=== PATIENT | male | born 1940 | race Caucasian/White ===

== ENCOUNTER 2024-11-29 13:19 | Emergency (ER) | payer MEDICARE, SELFPAY ==
[2024-11-29] VITALS (35 sets, daily range): BP systolic 162–221; BP diastolic 93–118; PULSE 62–84; TEMP 36.8; O2SAT 94–97; BMI 31.5
--- OUTSIDE RECORDS SUMMARY | 2024-11-29 09:15 | XMS_ITS | Encounter Summary ---
Author Organization [facility] Address [address] [facility] [place] [address] Care Team Providers Care Bottom Saw Operator Name Role Phone Santosh Montoya MD Unavailable [phone] Santosh Montoya MD Primary Care Provider [phone] Reason for Referral * Imaging (Routine) - Pending Review Specialty Diagnoses / Procedures Referred By Contac t Referred To Contact Cardiology Diagnoses Edema, unspecified type Chronic diastolic congestive heart failure (HCC) Procedures Echocardiogram 2D complete Santosh Montoya MD 112 [facility] [address] [place] [address] Phone: tel: fax: Referral ID Status Reason Start Date Expiration Date Visits Requested Visits Authorized [id number] Pending Review Perform Procedure 11/29/2024 05/28/2025 1 1 Encounter Details Date Type Department Care Team (Late st Contact Info) Description 11/29/2024 9:15 AM EDT [facility] [address] [place] [address] Santosh Montoya MD 112 [facility] [address] [place], [place] [id number] Edema, unspecified type (Primary Dx); Type 2 diabetes mellitus with other specified complication, without long-term current use of insulin (HCC); Pure hypercholesterolemi a; Benign essential hypertension; Atherosclerosis of [place] coronary artery of [place] heart without angina pectoris; Chronic diastolic congestive heart failure (HCC); Acute non-recurrent sinusitis, unspecified location Social History Tobacco Use Types Packs/Day Years Used Date Smoking Tobacco: Former Cigarettes 1 1974 Smokeless Tobacco: Never Tobacco Cessation:Counseling Given: Yes Alcohol Use Standard Drinks/Week Comments Defer 0 (1 standard drink = 0.6 oz pur e alcohol) PHQ-2 Answer Date Recorded Patient Health Questionnaire-2 Score 2 11/29/2024 Sex and Gender Information Value Date Recorded Sex Assigned at Not on file Legal Sex Male 6:42 PM EDT Gender Identity Not on file Sexual Orientation Not on file documented as of this encounter Last Filed Vital Signs Vital Sign Reading Time Taken Comments Blood Pressure 210/102 11/29/2024 9:25 AM EDT Pulse 87 11/29/2024 9:25 AM EDT Temperature - - Respiratory Rate 16 11/29/2024 9:25 AM EDT Oxygen Saturation 98% 11/29/2024 9:25 AM EDT Inhaled Oxygen Concentration - - Weight 93.9 kg (207 lb) 11/29/2024 9:25 AM EDT Height 172.7 cm (5' 8 ) 11/29/2024 9:25 AM EDT Body Mass Index 31.47 11/29/2024 9:25 AM EDT documented in this encounter Functional Status * Over the past 2 weeks, how often have you been bothered by any of the following problems? Question Answer Date of Assessment Author Little interest or pleasure in doing things Several days 11/29/2024 9:10 AM JOSHUAT RALPH GARNER Feeling down, depressed, or hopeless Several days 07/2024 9:10 AM EDT RALPH GARNER Patient Health Questionnaire-2 Score 2 07/2024 9:10 AM EDT RALPH GARNER * If you checked off any problems on this questionnaire so far, Question Answer Date of Assessment Author How difficult have these problems made it for you to do your work, take care of things at home, or get along with other people? Somewhat difficult 11/29/2024 9:10 AM JOSHUAT RALPH GARNER documented as of this encounter Progress Notes * Santosh Montoya MD - 11/29/2024 9:15 AM EDT Images from the original note were not included. Subjective Patient ID: Lisbet Elaine is a 84 y.o. male who presents for a follow up. Lisbet presents today for a a DM follow up. Last A1c was 7.2 in April. He hasn't been check his BS at home. He is also having B/I ankle swelling. Over the past 2 weeks, how often have you been bothered by any of the following problems? Little interest or pleasure in doing things: Several days Feeling down, depressed, or hopeless: Several days Patient Health Questionnaire-2 Score: 2 If you checked off any problems on this questionnaire so far, How difficult have these problems made it for you to do your work, take care of things at home, or get along with other people?: Somewhat difficult Current Outpatient Medications on File Prior to Visit Medication Sig Dispense Refill allopurinol (Zyloprim) 300 MG tablet TAKE 1 TABLET BY MOUTH ONCE DAILY 100 tablet 3 Blood Glucose Monitoring Suppl (ONE TOUCH ULTRA 2) w/Device kit 1 Device in the morning. 1 kit 0 cholecalciferol (Vitamin D-3) 25 MCG (1000 UT) capsule Take 1 capsule by mouth 1 (one) time each day at the same time glucose blood (Eleme MedicalTouch Ultra) test strip 1 each by Other route Daily 100 each 3 Lancets (Eleme MedicalTouch Delica Plus [id number]) misc Inject 1 Device under the skin Daily 100 each 3 [DISCONTINUED] aspirin 81 MG EC tablet Take 81 mg by mouth Daily [DISCONTINUED] atorvastatin (Lipitor) 20 MG tablet TAKE 1 TABLET BY MOUTH ONCE DAILY 100 tablet 3 [DISCONTINUED] carvedilol (Coreg) 25 MG tablet Take 1 tablet (25 mg) by mouth in the morning and 1 tablet (25 mg) in the evening. Take with meals. 180 tablet 3 [DISCONTINUED] clopidogrel (Plavix) 75 MG tablet TAKE 1 TABLET BY MOUTH ONCE DAILY 100 tablet 3 [DISCONTINUED] lisinopril 40 MG tablet Take 1 tablet (40 mg) by mouth Daily 90 tablet 3 No current facility-administered medications on file prior to visit. I have reviewed and reconciled the history and medication list with the patient today. Allergies Allergen Reactions Simvastatin Other Reaction(s): Myalgias Tizanidine Dizziness Social History Tobacco Use Smoking status: Former Current packs/day: 0.00 Types: Cigarettes Start date: 1959 Quit date: 1974 Years since quittin.7 Smokeless tobacco: Never Vaping Use Vaping status: Never Used Substance Use Topics Alcohol use: Defer Drug use: Defer No family history on file. Past Medical History: Diagnosis Date CAD (coronary artery disease) Diabetes mellitus (HCC) Hyperlipemia Hypertension Past Surgical History: Procedure Laterality Date ANGIOPLASTY 2007 CORONARY ANGIOPLASTY WITH STENT PLACEMENT 2006 ELBOW SURGERY Left 2019 bursectomy HERNIA REPAIR Visit Vitals BP (!) 210/102 Pulse 87 Resp 16 Ht 5' 8 Wt 207 lb SpO2 98% BMI 31.47 kg/m?? Smoking Status Former BSA 2.12 m?? Review of Systems Objective Physical Exam Constitutional: General: He is not in acute distress. Appearance: He is normal weight. He is not ill-appearing. HENT: Head: Normocephalic and atraumatic. Nose: Congestion present. Mouth/Throat: Pharynx: Oropharyngeal exudate and posterior oropharyngeal erythema present. Cardiovascular: Rate and Rhythm: Normal rate and regular rhythm. Pulses: Dorsalis pedis pulses are 0 on the right side and 0 on the left side. Posterior tibial pulses are 0 on the right side and 0 on the left side. Heart sounds: Murmur heard. Systolic murmur is present with a grade of 2/6. Pulmonary: Effort: Pulmonary effort is normal. No respiratory distress. Breath sounds: Normal breath sounds. No wheezing. Abdominal: General: Bowel sounds are normal. There is no distension. Palpations: Abdomen is soft. Tenderness: There is no abdominal tenderness. There is no guarding. Musculoskeletal: General: No swelling. Right lower leg: Edema present. Left lower leg: Edema present. Neurological: General: No focal deficit present. Mental Status: He is alert and oriented to person, place, and time. Psychiatric: Mood and Affect: Mood normal. Thought Content: Thought content normal. Judgment: Judgment normal. Office Visit on 11/29/2024 Component Date Value Ref Range Status Hemoglobin A1C 11/29/2024 7.6 Final Assessment/Plan Diagnoses and all orders for this visit: Edema, unspecified type - furosemide (Lasix) 20 MG tablet; Take 1 tablet (20 mg) by mouth Daily for 7 days - Echocardiogram 2D complete; Future Type 2 diabetes mellitus with other specified complication, without long-term current use of insulin (HCC) - POCT glycosylated hemoglobin (Hb A1C) docked device - aspirin 81 MG EC tablet; Take 1 tablet (81 mg) by mouth Daily Pure hypercholesterolemia - aspirin 81 MG EC tablet; Take 1 tablet (81 mg) by mouth Daily - atorvastatin (Lipitor) 20 MG tablet; Take 1 tablet (20 mg) by mouth Daily - clopidogrel (Plavix) 75 MG tablet; Take 1 tablet (75 mg) by mouth Daily Benign essential hypertension - aspirin 81 MG EC tablet; Take 1 tablet (81 mg) by mouth Daily - carvedilol (Coreg) 25 MG tablet; Take 1 tablet (25 mg) by mouth in the morning and 1 tablet (25 mg) in the evening. Take with meals. - lisinopril 40 MG tablet; Take 1 tablet (40 mg) by mouth Daily Atherosclerosis of [place] coronary artery of [place] heart without angina pectoris Chronic diastolic congestive heart failure (HCC) - B-type natriuretic peptide; Future - Comprehensive metabolic panel; Future - furosemide (Lasix) 20 MG tablet; Take 1 tablet (20 mg) by mouth Daily for 7 days - Echocardiogram 2D complete; Future - BP is up, he didn't take his meds. He has no symptoms of CP, Dyspnea, Headache, etc- states he feels fine. Will have him take his meds and RTC 4 hours for BP check. Acute non-recurrent sinusitis, unspecified location - azithromycin (Zithromax) 250 MG tablet; Take 2 tablets (500 mg) by mouth Daily for 1 day, THEN 1 tablet (250 mg) Daily for 4 days. Follow up in about 1 week (around 12/06/2024) for F/U med changes, Test/Lab Review. documented in this encounter Plan of Treatment Scheduled Orders Name Type Priority Associated Diagnoses Orde r Schedule B-type natriuretic peptide Lab Routine Chronic diastolic congestive heart failure (HCC) Expected: 11/29/2024 (Approximate), Expires: 11/29/2025 Comprehensive metabolic panel Lab Routine Chronic diastolic congestive heart failure (HCC) Expected: 11/29/2024 (Approximate), Expires: 11/29/2025 Echocardiogram 2D complete Echocardiography Routine Edema, unspecified type Chronic diastolic congestive heart failure (HCC) Expected: 11/29/2024 (Approximate), Expires: 11/29/2026 documented as of this encounter Procedures Procedure Name Priority Date/Time Associated Diagnosis Comments POCT GLYCOSYLATED HEMOGLOBIN (HGB A1C) Routine 11/29/2024 9:28 AM EDT Type 2 diabetes mellitus with other specified complication, without long-term current use of insulin (HCC) documented in this encounter Results * (ABNORMAL) POCT glycosylated hemoglobin (Hb A1C) docked device (11/29/2024 9:28 AM EDT) Hemoglobin A1C 7.6 Blood Venous blood specimen / Unknown 11/29/2024 9:28 AM EDT Santosh Montoya MD POINT OF CARE TEST ENTER/EDIT ORDERABLES Final Result documented in this encounter Visit Diagnoses Diagnosis Edema, unspecified type- Primary Type 2 diabetes mellitus with other specified complication, without long-term current use of insulin (HCC) Pure hypercholesterolemia Benign essential hypertension Essential hypertension, benign Atherosclerosis of [place] coronary artery of [place] heart without angina pectoris Chronic diastolic congestive heart failure (HCC) Acute non-recurrent sinusitis, unspecified location documented in this encounter Care Teams Bottom Saw Operator Relationship Specialty Start Date End Date Santosh Montoya MD 112 [facility] [address] [place] [address] PCP - ACO Reach 07/18/22 Santosh Montoya MD [address] [address] PCP - General Internal Medicine 07/02/22 documented as of this encounter
--- OUTSIDE RECORDS SUMMARY | 2024-11-29 13:29 | XMS_ITS | Clinical Summary ---
Author Organization [facility] Address [address] [facility] [place] [address] Care Team Providers Care Linderman Operator Name Role Phone Santosh Montoya MD Unavailable [phone] Santosh Montoya MD Primary Care Provider [phone] Allergies Active Allergy Reactions Criticality Noted Date Comments Simvastatin 10/10/2022 Other Reaction(s): Myalgias Tizanidine Dizziness 06/07/2024 Medications cholecalciferol (Vitamin D-3) 25 MCG (1000 UT) capsule Take 1 capsule by mouth 1 (one) time each day at the same time Active Blood Glucose Monitoring Suppl (ONE TOUCH ULTRA 2) w/Device kitIndications:Type 2 diabetes mellitus without complication, without long-term current use of insulin ([facility]) 1 Device in the morning. 1 kit 11/16/19 23 Active glucose blood (OneTouch Ultra) test stripIndications:Type 2 diabetes mellitus without complication, without long-term current use of insulin ([facility]) 1 each by Other route Daily 100 each 3 05/25/19 25 Active Lancets (OneTouch Delica Plus [id number]) miscIndications:Type 2 diabetes mellitus without complication, without long-term current use of insulin ([facility]) Inject 1 Device under the skin Daily 100 each 3 05/25/19 25 Active allopurinol (Zyloprim) 300 MG tabletIndications:Benig n essential hypertension TAKE 1 TABLET BY MOUTH ONCE DAILY 100 tablet 3 10/30/19 25 Active aspirin 81 MG EC tabletIndications:Type 2 diabetes mellitus with other specified complication, without long-term current use of insulin ([facility]),Pure hypercholesterolemia,Be nign essential hypertension Take 1 tablet (81 mg) by mouth Daily 100 tablet 3 11/30/19 25 Active atorvastatin (Lipitor) 20 MG tabletIndications:Pure hypercholesterolemia Take 1 tablet (20 mg) by mouth Daily 100 tablet 3 11/30/19 25 Active carvedilol (Coreg) 25 MG tabletIndications:Benig n essential hypertension Take 1 tablet (25 mg) by mouth in the morning and 1 tablet (25 mg) in the evening. Take with meals. 200 tablet 3 11/30/19 25 026 Active clopidogrel (Plavix) 75 MG tabletIndications:Pure hypercholesterolemia Take 1 tablet (75 mg) by mouth Daily 100 tablet 3 11/30/19 25 Active lisinopril 40 MG tabletIndications:Benig n essential hypertension Take 1 tablet (40 mg) by mouth Daily 100 tablet 3 11/30/19 25 Active azithromycin (Zithromax) 250 MG tabletIndications:Acute non-recurrent sinusitis, unspecified location Take 2 tablets (500 mg) by mouth Daily for 1 day, THEN 1 tablet (250 mg) Daily for 4 days. 6 tablet 11/30/19 25 025 Active furosemide (Lasix) 20 MG tabletIndications:Edema , unspecified type,Chronic diastolic congestive heart failure (HCC) Take 1 tablet (20 mg) by mouth Daily for 7 days 7 tablet 11/30/19 25 025 Active aspirin 81 MG EC tablet Take 81 mg by mouth Daily 025 Discontin ued(Reord er) clopidogrel (Plavix) 75 MG tabletIndications:Pure hypercholesterolemia TAKE 1 TABLET BY MOUTH ONCE DAILY 100 tablet 3 01/15/20 24 025 Discontin ued(Reord er) atorvastatin (Lipitor) 20 MG tabletIndications:Pure hypercholesterolemia TAKE 1 TABLET BY MOUTH ONCE DAILY 100 tablet 3 01/15/20 24 025 Discontin ued(Reord er) lisinopril 40 MG tabletIndications:Benig n essential hypertension Take 1 tablet (40 mg) by mouth Daily 90 tablet 3 03/09/19 25 025 Discontin ued(Reord er) carvedilol (Coreg) 25 MG tabletIndications:Benig n essential hypertension Take 1 tablet (25 mg) by mouth in the morning and 1 tablet (25 mg) in the evening. Take with meals. 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 06/16/2024 Atherosclerosis of [place] co ronary artery of [place] heart without angina pectoris 10/10/2022 Benign essential hypertension 10/10/2022 Calculus of ureter 10/10/2022 Elevated antinuclear antibody (DILSHAD) level 2022 Essential tremor 10/10/2022 Mild diastolic dysfunction 10/10/2022 Post-traumatic osteoarthritis of right knee 09/24 Primary osteoarthritis involving multiple joints 10/10/2022 Pure hypercholesterolemia 10/10/2022 Seborrheic dermatitis 10/10/2022 Type 2 diabetes mellitus with other specified co mplication 10/10/2022 Acute idiopathic gout of left elbow 10/10/2022 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 10/10/2022 Resolved Problems Problem Noted Date Diagnosed Date Resolved Date Poorly controlled diabetes mellitus 10/10/2022 05/24/2024 Encounters Date Type Department Care Team Description 11/29/2024 9:15 AM EDT Office Visit [facility] [address] [place] [id number] Santosh Montoya MD Edema, unspecified type (Primary Dx); Type 2 diabetes mellitus with other specified complication, without long-term current use of insulin (HCC); Pure hypercholesterolemia ; Benign essential hypertension; Atherosclerosis of [place] coronary artery of [place] heart without angina pectoris; Chronic diastolic congestive heart failure (HCC); Acute non-recurrent sinusitis, unspecified location 11/29/2024 [facility] 110 [place] [id number] Santosh Montoya MD 11/29/2024 Travel 11/12/2024 [facility] 110 [place] [address] Santosh Montoya MD 10/28/2024 [facility] [address] [facility] 110 [place] [id number] Santosh Montoya MD Benign essential hypertension 09/02/2024 Telephone [facility] [place] [facility] [address] [address] [facility] [address] [place] [address] Santosh Montoya MD handicap placard from Last 3 Months Immunizations Immunization Administration Dates Next Due Influenza, High Dose Seasona l, Preservative Free 11/15/2023,01/08/2022 Influenza, High-dose Seasona l, Quadrivalent, Preservative Free 12/26/2020,12/29/2018,11/26/2017 Influenza, Seasonal, Quadriv alent, Adjuvanted 12/30/2022 Influenza, injectable, quadr ivalent, preservative free 11/13/2019,12/11/2015 Influenza, seasonal, injectable 11/01/2013 Influenza, seasonal, intrade rmal, preservative free 11/03/2014,12/14/2012 Pneumococcal Conjugate PCV 13 02/19/2018 Pneumococcal Polysaccharide PPSV23 11/09/2013 Zoster, Recombinant 04/11/2019 Family History Relation Name Status Comments Father Mother Social History Tobacco Use Types Packs/Day Years Used Date Smoking Tobacco: Former Cigarettes 1974 Smokeless Tobacco: Never Tobacco Cessation:Counseling Given: Yes Alcohol Use Standard Drinks/Week Comments Defer 0 (1 standard drink = 0.6 oz pur e alcohol) PHQ-2 Answer Date Recorded Patient Health Questionnaire-2 Score 2 11/29/2024 Sex and Gender Information Value Date Recorded Sex Assigned at Not on file Legal Sex Male 6:42 PM EDT Gender Identity Not on file Sexual Orientation Not on file Last Filed Vital Signs Vital Sign Reading [...] Mass Index 31.47 11/29/2024 9:25 AM EDT Plan of Treatment Health Maintenance Due Date Last Done Comments Diabetes: Retinopathy Screening 09/10/1950 Diabetes: Urine Protein Screening 11/01/2021 11/01/2020, 10/28/2019, 07/07/2018 Diabetes: Hemoglobin A1C 03/01/2025 025, 05/24/2024, 04/23/2023, Additional history exists Medicare Annual Wellness (AWV) 05/24/2025 0 05/24/2024, 05/21/2023, 04/24/2022, Additional history exists Pneumococcal Vaccine: 65+ Years Completed 8, 11/09/2013 Influenza Vaccine Completed 11/03/2024, , 12/30/2022, Additional history exists Procedures Procedure Name Priority Date/Time Associated Diagnosis Comments POCT GLYCOSYLATED HEMOGLOBIN (HGB A1C) Routine 11/29/2024 9:28 AM EDT Type 2 diabetes mellitus with other specified complication, without long-term current use of insulin (HCC) MICROALBUMIN / CREATININE URINE RATIO Routine 11/01/2020 from Last 3 Months or Most Recently Relevant to Health Maintenance Results * (ABNORMAL) POCT glycosylated hemoglobin (Hb A1C) docked device (11/29/2024 9:28 AM EDT) Hemoglobin A1C 7.6 Blood Venous blood specimen / Unknown 11/29/2024 9:28 AM EDT Santosh Montoya MD POINT OF CARE TEST ENTER/EDIT ORDERABLES Final Result * (ABNORMAL) Microalbumin / creatinine urine ratio (11/01/2020) UCREA 214 39 - 259 [facility] MALB <1.2(L) [facility] Comment: Unable to calculate mALB/Crea ratio, mALB is <1.2 mg/dL mALB reference range not established. 11/01/2020 us Santosh Montoya MD LAB URINE ORDERABLES Final Res ult [facility] from Last 3 Months or Most Recently Relevant to Health Maintenance Insurance MEDICARE [facility] Care Teams Linderman Operator Relationship Specialty Start Date End Date Santosh Montoya MD [address] [facility] 110 [place] [address] PCP - ACO Reach 07/18/22 Santosh Montoya MD [address] [facility] 110 [place] [address] PCP - General Internal Medicine 07/02/22
--- OUTSIDE RECORDS SUMMARY | 2024-11-29 13:29 | XMS_ITS | Encounter Summary ---
Author Organization [facility] Address [address] [facility] [place] [address] Care Team Providers Care Collaborating Supervising Physician Name Role Phone Santosh Montoya MD Unavailable [phone] Santosh Montoya MD Primary Care Provider [phone] Encounter Details Date Type Department Care Team (Late st Contact Info) Description 10/10/2022 Orders Only [facility] [address] [facility] [address] [place] [address] Prema Chan, ASSISTANT PROJECT ENGINEER [address] [facility] [facility] [place] [address] Social History Tobacco Use Types Packs/Day Years Used Date Smoking Tobacco: Never Assessed Sex and Gender Information Value Date Recorded Sex Assigned at Not on file Legal Sex Male 6:42 PM EDT Gender Identity Not on file Sexual Orientation Not on file documented as of this encounter Plan of Treatment Not on file documented as of this encounter Visit Diagnoses Not on filedocumented in this encounter Care Teams Collaborating Supervising Physician Relationship Specialty Start Date End Date Santosh Montoya MD [address] [facility] [address] [place], [place] [id number] PCP - ACO Reach 07/18/22 Santosh Montoya MD [address] [facility] [address] [place], [place] [id number] PCP - General Internal Medicine 07/02/22 documented as of this encounter
--- OUTSIDE RECORDS SUMMARY | 2024-11-29 13:29 | XMS_ITS | Encounter Summary ---
Author Organization [facility] Address [address] [facility] [place] [address] Care Team Providers Care Experimental Physicist Name Role Phone Santosh Montoya MD Unavailable [phone] Santosh Montoya MD Primary Care Provider [phone] Encounter Details Date Type Department Care Team (Late st Contact Info) Description 05/22/2023 Abstract [facility] [place] [facility] [address] [facility] 110 [place] [phone] Santosh Montoya MD [address] [facility] 110 [place] [address] Social History Tobacco Use Types Packs/Day Years Used Date Smoking Tobacco: Former Cigarettes 1974 Smokeless Tobacco: Never Sex and Gender Information Value Date Recorded Sex Assigned at Not on file Legal Sex Male 6:42 PM EDT Gender Identity Not on file Sexual Orientation Not on file documented as of this encounter Plan of Treatment Not on file documented as of this encounter Visit Diagnoses Not on filedocumented in this encounter Care Teams Experimental Physicist Relationship Specialty Start Date End Date Santosh Montoya MD [address] [facility] [address] [place] [address] PCP - ACO Reach 07/18/22 Santosh Montoya MD [address] [facility] [address] [place] [address] PCP - General Internal Medicine 07/02/22 documented as of this encounter
--- OUTSIDE RECORDS SUMMARY | 2024-11-29 13:29 | XMS_ITS | Encounter Summary ---
Author Organization [facility] Address [address] [facility] [place] [address] Care Team Providers Care Building Cleaner Name Role Phone Santosh Montoya MD Unavailable [phone] Santosh Montoya MD Primary Care Provider [phone] Reason for Visit * Reason Comments Med Refill Encounter Details Date Type Department Care Team (Late st Contact Info) Description 04/28/2024 Refill [facility] [place] [facility] [address] [facility] [address] [place] [id number] Santosh Montoya MD [address] [place], [place] [id number] Benign essential hypertension Social History Tobacco Use Types Packs/Day Years Used Date Smoking Tobacco: Former Cigarettes 1974 Smokeless Tobacco: Never Sex and Gender Information Value Date Recorded Sex Assigned at Not on file Legal Sex Male 6:42 PM EDT Gender Identity Not on file Sexual Orientation Not on file documented as of this encounter Miscellaneous Notes * Telephone Encounter - VALERI Scott - 04/29/2024 11:23 AM EST Patient has not been seen in almost a year, and cancelled her last appt. A one month supply was sent in for pt. Please help her get set up with Dr. Montoya for an appointment within the next month. documented in this encounter Plan of Treatment Not on file documented as of this encounter Visit Diagnoses Diagnosis Benign essential hypertension Essential hypertension, benign documented in this encounter Care Teams Building Cleaner Relationship Specialty Start Date End Date Santosh Montoya MD [address] [facility] [address] [place] [address] PCP - ACO Reach 07/18/22 Santosh Montoya MD [address] [facility] 110 [place] [address] PCP - General Internal Medicine 07/02/22 documented as of this encounter
--- OUTSIDE RECORDS SUMMARY | 2024-11-29 13:29 | XMS_ITS | Encounter Summary ---
Author Organization [facility] Address [address] [facility] [place] [address] Care Team Providers Care Patient Coordinator Name Role Phone Santosh Montoya MD Unavailable [phone] Santosh Montoya MD Primary Care Provider [phone] Encounter Details Date Type Department Care Team (Latest Contact Info) Description 11/29/2024 Travel Social History Tobacco Use Types Packs/Day Years Used Date Smoking Tobacco: Former Cigarettes 1974 Smokeless Tobacco: Never Alcohol Use Standard Drinks/Week Comments Defer 0 (1 standard drink = 0.6 oz pur e alcohol) PHQ-2 Answer Date Recorded Patient Health Questionnaire-2 Score 2 11/29/2024 Sex and Gender Information Value Date Recorded Sex Assigned at Not on file Legal Sex Male 6:42 PM EDT Gender Identity Not on file Sexual Orientation Not on file documented as of this encounter Functional Status * Over the past 2 weeks, how often have you been bothered by any of the following problems? Question Answer Date of Assessment Author Little interest or pleasure in doing things Several days 11/29/2024 9:10 AM RALPH MORRISON Feeling down, depressed, or hopeless Several days 07/2024 9:10 AM RALPH MORRISON Patient Health Questionnaire-2 Score 2 07/2024 9:10 AM RALPH MORRISON * If you checked off any problems on this questionnaire so far, Question Answer Date of Assessment Author How difficult have these problems made it for you to do your work, take care of things at home, or get along with other people? Somewhat difficult 11/29/2024 9:10 AM RALPH MORRISON documented as of this encounter Plan of Treatment Not on file documented as of this encounter Visit Diagnoses Not on filedocumented in this encounter Care Teams Patient Coordinator Relationship Specialty Start Date End Date Santosh Montoya MD [address] [facility] 110 [place] [address] PCP - ACO Reach 07/18/22 Santosh Montoya MD [address] [facility] 110 [place] [address] PCP - General Internal Medicine 07/02/22 documented as of this encounter
--- OUTSIDE RECORDS SUMMARY | 2024-11-29 13:29 | XMS_ITS | Encounter Summary ---
Author Organization [facility] Address [address] [facility] [place] [address] Care Team Providers Care Toolroom Helper Name Role Phone Santosh Montoya MD Unavailable [phone] Santosh Montoya MD Primary Care Provider [phone] Encounter Details Date Type Department Care Team (Late st Contact Info) Description 05/24/20[address] [facility] [place] [facility] [address] [facility] [address] [place] [phone] Santosh Montoya MD [address] [place], [place] [phone] Social History Tobacco Use Types Packs/Day Years Used Date Smoking Tobacco: Former Cigarettes 1974 Smokeless Tobacco: Never PHQ-2 Answer Date Recorded Patient Health Questionnaire-2 Score 0 05/27/2024 Sex and Gender Information Value Date Recorded [...] Little interest or pleasure in doing things Not at all 05/27/2024 9:22 AM JOSHUAT Mirna Mcclendon LP N Feeling down, depressed, or hopeless Not at all 05/27/2024 9:22 AM EDT Mirna Mcclendon LP N Patient Health Questionnaire -2 Score 0 05/27/2024 9:22 AM JOSHUAT Mirna Mcclendon LP N documented as of this encounter Plan of Treatment Not on file documented as of this encounter Visit Diagnoses Not on filedocumented in this encounter Care Teams Toolroom Helper Relationship Specialty Start Date End Date Santosh Montoya MD [address] [facility] 110 [place] [address] PCP - ACO Reach 07/18/22 Santosh Montoya MD [address] [facility] [address] [place] [address] PCP - General Internal Medicine 07/02/22 documented as of this encounter
--- OUTSIDE RECORDS SUMMARY | 2024-11-29 13:29 | XMS_ITS | Encounter Summary ---
Author Organization [facility] Address [address] [facility] [place] [address] Care Team Providers Care Assault Amphibious Vehicle Officer Name Role Phone Santosh Montoya MD Unavailable [phone] Santosh Montoya MD Primary Care Provider [phone] Encounter Details Date Type Department Care Team (Late st Contact Info) Description 11/29/2024 Bamboo flowsheet [facility] [place] [facility] [address] [facility] 110 [place] [address] Santosh Montoya MD [address] [facility] 110 [place] [address] Social History Tobacco Use Types Packs/Day Years [...] on filedocumented in this encounter Care Teams Assault Amphibious Vehicle Officer Relationship Specialty Start Date End Date Santosh Montoya MD [address] [facility] 110 [place] [address] PCP - ACO Reach 07/18/22 Santosh Montoya MD [address] [facility] 110 [place] [address] PCP - General Internal Medicine 07/02/22 documented as of this encounter
--- OUTSIDE RECORDS SUMMARY | 2024-11-29 13:29 | XMS_ITS | Encounter Summary ---
Author Organization [facility] Address [address] [facility] [place] [address] Care Team Providers Care Logging Supervisor Name Role Phone Santosh Montoya MD Unavailable [phone] Santosh Montoya MD Primary Care Provider [phone] Encounter Details Date Type Department Care Team (Late st Contact Info) Description 10/19/2022 Abstract [facility] [place] [facility] [address] [facility] 110 [place] [phone] Santosh Montoya MD [address] [facility] 110 [place] [address] Social History Tobacco Use Types Packs/Day Years [...] on filedocumented in this encounter Care Teams Logging Supervisor Relationship Specialty Start Date End Date Santosh Montoya MD [address] [place] [address] PCP - ACO Reach 07/18/22 Santosh Montoya MD [address] [place] [address] PCP - General Internal Medicine 07/02/22 documented as of this encounter
--- OUTSIDE RECORDS SUMMARY | 2024-11-29 13:29 | XMS_ITS | Encounter Summary ---
Author Organization [facility] Address [address] [facility] [place] [address] Care Team Providers Care Center Human Resources Manager Name Role Phone Santosh Montoya MD Unavailable [phone] Santosh Montoya MD Primary Care Provider [phone] Encounter Details Date Type Department Care Team (Late st Contact Info) Description 06/07/2024 Abstract [facility] [place] [facility] [address] [place] [address] Santosh Montoya MD [address] [place], [place] [phone] Social History Tobacco Use Types Packs/Day Years Used Date Smoking Tobacco: Former Cigarettes 1974 Smokeless Tobacco: Never PHQ-2 Answer Date Recorded Patient Health Questionnaire-2 Score 0 06/07/2024 Sex and Gender Information Value Date Recorded [...] pleasure in doing things Not at all 06/07/2024 8:36 AM JOSHUAT Mirna Mcclendon LP N Feeling down, depressed, or hopeless Not at all 06/07/2024 8:36 AM EDT Mirna Mcclendon LP N Patient Health Questionnaire -2 Score 0 06/07/2024 8:36 AM EDT Mirna Mcclendon LP N documented as of this encounter Plan of Treatment Not on file documented as of this encounter Visit Diagnoses Not on filedocumented in this encounter Care Teams Center Human Resources Manager Relationship Specialty Start Date End Date Santosh Montoya MD [address] [facility] 110 [place] [address] PCP - ACO Reach 07/18/22 Santosh Montoya MD [address] [facility] 110 [place] [address] PCP - General Internal Medicine 07/02/22 documented as of this encounter
--- OUTSIDE RECORDS SUMMARY | 2024-11-29 13:29 | XMS_ITS | Clinical Summary ---
Author Organization [facility] Address [facility] [place] [address] Care Team Providers Care Motor And Chassis Inspector Name Role Phone Jan ROMAN MD, Santosh Marquis Primary Care Provider [phone] Allergies Active Allergy Reactions Criticality Noted Date Comments Simvastatin Unknown 10/10/2022 Other Reaction(s): Myalgias Medications aspirin, enteric coated (ASPIRIN, ENTERIC COATED) 81 mg EC tablet Take 81 mg by mouth. Active atorvastatin (LIPITOR) 20 mg tablet Take 20 mg by mouth. Active clopidogrel (PLAVIX) 75 mg tablet Take 75 mg by mouth. Active hydroCHLOROthia zide 25 mg tablet Take 25 mg by mouth. Active lisinopril (ZESTRIL) 40 mg tablet Take 40 mg by mouth. Active metoprolol tartrate, short acting, (LOPRESSOR) 100 mg tablet Take 100 mg by mouth. Active allopurinol (ZYLOPRIM) 300 mg tablet Take 300 mg by mouth. Active metFORMIN ER (GLUCOPHAGE XR) 500 mg 24 hr tablet Take 1,000 mg by mouth. Active prednisoLONE acetate (PRED FORTE) 1 % ophthalmic suspension USE DIRECTED BY PHYSICIAN, IN OPERATIVE EYE, BEGINNING ONE DAY AFTER SURGERY 5 mL 3 Active Additional Information Patient not taking.Reason: Course of Therapy Completed, Reported on 04/17/2023 keTORolac (ACULAR) 0.5 % ophthalmic solution USE DIRECTED BY PHYSICIAN, IN OPERATIVE EYE, BEGINNING ONE DAY AFTER SURGERY 5 mL 3 Active Additional Information Patient not taking.Reason: Course of Therapy Completed, Reported on 04/17/2023 prednisoLONE acetate (PRED FORTE) 1 % ophthalmic suspension USE DIRECTED BY PHYSICIAN, IN OPERATIVE EYE, BEGINNING ONE DAY AFTER SURGERY 5 mL 3 Active Additional Information Patient not taking.Reason: Course of Therapy Completed, Reported on 04/17/2023 keTORolac (ACULAR) 0.5 % ophthalmic solution USE DIRECTED BY PHYSICIAN, IN OPERATIVE EYE, BEGINNING ONE DAY AFTER SURGERY 5 mL 3 Active Additional Information Patient not taking.Reason: Course of Therapy Completed, Reported on 04/17/2023 Active Problems Problem Noted Date Diagnosed Date Poorly controlled diabetes mellitus 10/10/2022 10/17/2022 Type 2 diabetes mellitus without complications 0 10/10/2022 10/17/2022 Assessment & Plan (10/17/2022 9:57 AM EDT): Assessment: stable on medication Pure hypercholesterolemia 07/15/20182022 Assessment & Plan (10/17/2022 9:56 AM EDT): Assessment: stable on medication Benign essential hypertension 02/10/2015 Assessment & Plan (10/17/2022 9:56 AM EDT): Assessment: Stable on medication BP today 172/73 To take medication morning of surgery Essential tremor 02/10/2015 10/17/2022 Assessment & Plan (10/17/2022 9:55 AM EDT): Assessment: stable no tremors noted 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neighborhoodatlas.[facility]/. Last address used for calculation [address] 08/29/2022 Sex and Gender Information Value Date Recorded Sex Assigned at Not on file Legal Sex Male 2:28 PM EDT Gender Identity Male 06/14/2022 8:36 AM EDT Sexual Orientation Not on file Last Filed Vital Signs Vital Sign Reading Time Taken Comments Blood Pressure 165/84 11/13/2022 10:08 AM EDT Pulse 60 11/13/2022 10:08 AM EDT Temperature 36.7 C (98 F) 11/13/2022 9:58 AM EDT Respiratory Rate 16 11/13/2022 10:08 AM EDT Oxygen Saturation 96% 11/13/2022 10:08 AM EDT Inhaled Oxygen Concentration - - Weight 87.5 kg (193 lb) 10/17/2022 9:18 AM EDT Height 170.2 cm (5' 7 ) 10/17/2022 9:18 AM EDT Body Mass Index 30.23 10/17/2022 9:18 AM EDT Plan of Treatment Health Maintenance Due Date Last Done Comments Anxiety Screening 09[birth year]10/1958 Depression Screening 09/10/1958 DTaP,Tdap,Td Vaccine (1 - Tdap) 09/10/1958 RSV Vaccine (1 - 1-dose 75+ series) 09/10/2014 Shingrix Vaccine (2 of 2) 06/06/2019 04/11/2019 Advance Directive Discussion 02/25/2024 Covid-19 Vaccine (7 - 2024-2 6 season) 2024 01/28/2023, 01/08/2022, 05/28/2021, Additional history exists Influenza Vaccine (#1) 2024 , 01/08/2022, 12/26/2020, Additional history exists Diabetes Screening 10/21/2025 10/21/2022 Pneumococcal Vaccine: 50+ Completed 02/19/2018, Medical Devices Implanted Type Area Grader Patrol Device Identifier Shelf Expiration Date Model / Serial / Lot Annaliseon Toric Uv Iol +17.5d Implanted:Qty: 1 on 10/30/2022 by Nallely Conway V, MD at [facility] Implant Right: Eye [employer] 07/10/2025 [id number] / [id number] / Description:-0.23 Clareon Toric Uv Iol Implanted:Qty: 1 on 11/13/2022 by Nallely Conway V, MD at [facility] [place] Implant Left: Eye [employer] 02/02/2026 [id number] / [id number] / Description:-0.47 Insurance MEDICARE MEDICARE Care Teams Motor And Chassis Inspector Relationship Specialty Start Date End Date Santosh Montoya II, MD PCP - General Internal Medicine 09/22/14
--- OUTSIDE RECORDS SUMMARY | 2024-11-29 13:29 | XMS_ITS | Clinical Summary ---
Author Organization [facility] Address [id number] [address] [place] [address] Care Team Providers Care Link Assembler Name Role Phone Santosh Montoya MD Primary Care Provider [phone] Allergies Active Allergy Reactions Criticality Noted Date Comments Simvastatin muscle cramps 04/20/2018 myalgia Medications aspirin 81 mg Take 81 mg by mouth daily. Active lisinopril (PRINIVIL,ZESTRI L) 40 mg tablet Take 40 mg by mouth daily. Active metoprolol tartrate (LOPRESSOR) 100 mg tablet Take 100 mg by mouth 2 (two) times a day. Active atorvastatin (LIPITOR) 20 mg tablet Take 20 mg by mouth daily. Active hydroCHLOROthiaz yoli (HYDRODIURIL) 25 mg tablet Take 25 mg by mouth daily. Active sulfamethoxazole -trimethoprim (BACTRIM DS) 800-160 mg per tablet Take 1 tablet by mouth 2 (two) times a day. Active clopidogrel (PLAVIX) 75 mg tablet Take 75 mg by mouth daily. Active Family History Medical History Relation Name Comments Alzheimer's disease Father Hypertension Mother Relation Name Status Comments Father Mother Social History Tobacco Use Types Packs/Day Years Used Date Smoking Tobacco: Former Smokeless Tobacco: Former Snuff Alcohol Use Standard Drinks/Week Comments Yes 0 (1 standard drink = 0.6 oz pur e alcohol) weekly AUDIT-C Answer Date Recorded Frequency of Alcohol Consumption Never 04/20/2018 Average Number of Drinks Not on file 019 Frequency of Binge Drinking Not on file 03/28 Childcare Answer Date Recorded Childcare Unknown 08/06/2018 Employment Answer Date Recorded Employment Unknown 08/06/2018 Purpose - Life Answer Date Recorded Purpose and direction in life Unknown Sex and Gender Information Value Date Recorded Sex Assigned at Not on file Legal Sex Male 8:33 AM EST Gender Identity Not on file Sexual Orientation Not on file Last Filed Vital Signs Vital Sign Reading Time Taken Comments Blood Pressure 111/67 04/21/2018 3:45 PM EST Pulse 82 04/21/2018 3:33 PM EST Temperature 36.4 C (97.5 F) 04/21/2018 2:45 PM EST Respiratory Rate 20 04/21/2018 3:20 PM EST Oxygen Saturation 91% 04/21/2018 3:55 PM EST Inhaled Oxygen Concentration - - Weight 90.7 kg (200 lb) 04/21/2018 11:43 AM EST Height 172.7 cm (5' 7.99 ) 04/21/2018 11:[address] Body Mass Index 30.42 04/21/2018 11:43 AM EST Plan of Treatment Not on file Medical Devices [place] [address] MEDICARE [facility] Care Teams Link Assembler Relationship Specialty Start Date End Date Santosh Montoya MD [address] [place] [address] PCP - General Internal Medicine 04/20/18
--- NOTE | 2024-11-29 13:46 | XR_ITS ---
[address] [address] Patient Name: HERVE REGALADO MRN: [id number] date: 1940 Sex: M Assigned Patient Location: ED.MAIN Current Patient Location: ED.MAIN Accession/Order Number: [id number] Exam Date: 11/29/2024 14:15 Report Date: 11/29/2024 14:32 At the request of: JAZMIN TRAMMELL Procedure: XR chest 1V XR chest 1V 11/29/2024 2:20 PM SIGNS AND SYMPTOMS: Hypertension PROTOCOL: Frontal radiograph of the chest COMPARISON: 04/03/2018 FINDINGS: The trachea is midline. Atherosclerotic changes are noted in the thoracic aorta. The heart and mediastinal structures are within normal limits. The lung parenchyma is clear. The bony thorax is intact. Degenerative changes are noted in the shoulders and thoracic spine. XR/XR chest 1V IMPRESSION: No acute cardiopulmonary pathology. Impression dictated by: German Arrington M.D. 11/29/2024 2:32 PM Dictation Location: [place] [address] Electronically authenticated by: [id number] Y Date: 11/29/2024 14:32
[2024-11-29 13:51] LABS: Hematocrit 45.1 % (42.0-54.0); Hemoglobin 15.2 g/dL (14.0-18.0); Immature Granulocytes Abs Auto 0.01 10^3/uL (0.00-0.03); Immature Granulocytes Pct Auto 0.2 % (0.0-0.5); Lymphocytes Absolute Auto 2.1 10^3/uL (1.2-3.8); Mean Corpuscular HGB Conc 33.7 g/dL (29.9-35.2); Mean Corpuscular Hemoglobin 32.3 pg (25.9-34.0); Mean Corpuscular Volume 96.0 fL (80.0-94.0); Platelet Count 143 10^3/uL (150-450); Red Blood Count 4.70 10^6/uL (4.70-6.10); White Blood Count 6.2 10^3/uL (4.0-11.0)
--- NOTE | 2024-11-29 14:05 | ECG_ITS ---
[facility] Test Date: 2024-11-29 Pat Name: HERVE REGALADO Department: Room: - Gender: Male Store Associate: : 1940 Requested By: BRAD ORR Order Number: [id number] Reading MD: YOLANDA GALLO M.D. Measurements Intervals Hudson Rate: 82 P: 48 SC: 194 QRS: -37 QRSD: 82 T: 43 QT: 396 QTc: 434 Interpretive Statements 1100 Sinus rhythm 7200 Abnormal left axis deviation 9130 borderline ECG Compared to ECG 04/03/2018 21:38:19 Sinus arrhythmia no longer present Electronically Signed On 11-29-2024 18:30:20 EDT by YOLANDA GALLO M.D.
[2024-11-29] MEDS: ENALAPRILAT DIHYDRATE 1.25 MG/ML VIAL IV (14:18)
[2024-11-29] MEDS: METOPROLOL TARTRATE 5 MG/5 ML VIAL IVP (14:18)
[2024-11-29 14:28] LABS: Alanine Aminotransferase 48 U/L (16-63); Albumin Globulin Ratio 1.2; Albumin Level 3.6 g/dL (3.4-5.0); Alkaline Phosphatase 104 U/L (46-116); Anion Gap 12.2; Aspartate Amino Transferase 25 U/L (15-37); Blood Urea Nitrogen 20.0 mg/dL (7.0-18.0); Calcium 8.8 mg/dL (8.5-10.1); Carbon Dioxide 29.2 mmol/L (21.0-32.0); Chloride 105 mmol/L (98-107); Estimated GFR (African America >60 (>=60 mL/min/1.73m^2); Estimated GFR (Non-African Ame >60 (>=60 mL/min/1.73m^2); Globulin 2.9 g/dL; Glucose 243 mg/dL (74-106); Potassium 4.4 mmol/L (3.5-5.1); Sodium 142 mmol/L (136-145); Total Protein 6.5 g/dL (6.4-8.2)
--- NOTE | 2024-11-29 14:35 | ED.GENADUL1 ---
HPI HPI - General Adult General Chief complaint: Recheck/Abnormal Lab/Rx Stated complaint: HIGH BLOOD PRESSURE Time Seen by Provider: 11/29/24 13:36 Source: patient Mode of arrival: Wheelchair History of Present Illness HPI narrative: The patient is an 84-year-old male presenting to the ED for evaluation of significantly elevated blood pressure. He reports that at his annual checkup earlier today, his blood pressure was found to be markedly elevated. He had not taken his usual morning blood pressure medications (carvedilol and lisinopril) prior to the appointment due to fasting instructions. After the appointment, he went home, took his medications, and returned for a recheck, but his blood pressure remained significantly elevated, prompting referral to the ED. He reports a very mild headache, which he would typically treat with Tylenol; it is not sudden in onset or the worst headache of his life. He denies vision changes, flashes, or floaters. He denies chest pain, chest pressure, shortness of breath, abdominal pain, nausea, vomiting, diarrhea, hematuria, recent illness, or injury. He notes some increased lower extremity swelling over the past couple of months, but no associated pain. He has not checked his blood pressure at home for about three months, but recalls previous readings in the 130s systolic. He is compliant with his medications, which include carvedilol 25 mg BID, lisinopril 40 mg daily, and aspirin. He has a history of hyperlipidemia, hypertension, and remote coronary stent placement (over 5 years ago). No recent medication changes. He denies dizziness, lightheadedness, or syncope. No additional antihypertensives taken at home today. Related Data Home Medications ?Medication ?Instructions ?Recorded ?Confirmed allopurinol 300 mg tablet 300 mg PO DAILY 11/29/24 11/29/24 aspirin 81 mg capsule 81 mg PO DAILY 11/29/24 11/29/24 atorvastatin 20 mg tablet 20 mg PO DAILY 11/29/24 11/29/24 carvedilol 25 mg tablet 25 mg PO Q12H 11/29/24 11/29/24 cholecalciferol (vitamin D3) 125 125 mcg PO DAILY 11/29/24 11/29/24 mcg (5,000 unit) tablet (Vitamin D3) clopidogrel 75 mg tablet 75 mg PO DAILY 11/29/24 11/29/24 lisinopril 40 mg tablet 40 mg PO DAILY 11/29/24 11/29/24 Allergies Allergy/AdvReac Type Severity Reaction Status Date / Time No Known Drug Allergies Allergy Verified 11/29/24 13:34 PFSH PFSH Social History Little interest or pleasure in doing things: not at all Feeling down, depressed, or hopeless: not at all Exam Narrative Exam Narrative: General:?Alert, oriented, in no acute distress. HEENT:?Pupils equal, round, and reactive to light. No papilledema. Mucous membranes moist. No focal cranial tenderness. Neck:?No JVD, no carotid bruits. Cardiac:?Regular rate and rhythm, no murmurs, rubs, or gallops. Respiratory:?Clear to auscultation bilaterally, no rales, wheezes, or rhonchi. Abdomen:?Soft, non-tender, non-distended. No masses or organomegaly. Extremities:?1+ pedal edema bilaterally. No calf tenderness or asymmetry. Neuro:?Alert and oriented. No focal neurological deficits. Cranial nerves II-XII intact. No motor or sensory deficits. Skin:?No rashes or lesions. Constitutional Vital Signs, click to edit/add: Last Vital Signs Temp 98.3 F 11/29/24 13:26 Pulse 78 11/29/24 15:50 Resp 25 H 11/29/24 15:50 BP 207/112 H 11/29/24 15:45 Pulse Ox 95 11/29/24 15:50 O2 Del Method Room Air 11/29/24 13:26 Course Reevaluation(s) Reevaluation #1: BP persists at 212/103, labetalol added per Dr. Rosas Time: 15:10 Vital Signs Vital signs: Vital Signs Temperature 98.3 F 11/29/24 13:26 Pulse Rate 84 11/29/24 13:26 Respiratory Rate 18 11/29/24 13:26 Blood Pressure 220/118 H 11/29/24 13:26 Pulse Oximetry 96 11/29/24 13:26 Oxygen Delivery Method Room Air 11/29/24 13:26 Temperature 98.3 F 11/29/24 13:26 Pulse Rate 78 11/29/24 15:50 Respiratory Rate 25 H 11/29/24 15:50 Blood Pressure 207/112 H 11/29/24 15:45 Pulse Oximetry 95 11/29/24 15:50 Oxygen Delivery Method Room Air 11/29/24 13:26 Medical Decision Making MDM Narrative Medical decision making narrative: This is an 84-year-old male with a history of hypertension, hyperlipidemia, and remote coronary stent placement, presenting with asymptomatic severe hypertension (initial BP 220/118) after missing his morning antihypertensive medications due to fasting for a routine appointment. He subsequently took his medications, but his blood pressure remained elevated. He reports only a mild headache, with no neurological symptoms, chest pain, dyspnea, or other end-organ dysfunction. Exam is unremarkable except for mild pedal edema. Labs are notable for hyperglycemia (glucose 243), but otherwise normal CBC and chemistry. Troponin is mildly elevated at 12.4, but stable on repeat, and there are no ischemic changes on EKG. CXR is unremarkable. The patient received metoprolol, enalapril, and later labetalol in the ED, with gradual improvement in blood pressure but persistent readings in the hypertensive range (lowest 180/100). He remained asymptomatic throughout his ED stay, with no evidence of hypertensive emergency or acute end-organ damage. Given his stability, lack of symptoms, and absence of acute findings, he is appropriate for discharge with close outpatient follow-up and instructions to resume his regular antihypertensive regimen. Case managed with Dr. Nielsen, ed attending who ultimatly dispositioned the patient. Return precautions provided. will follow with pcp tomorrow. Lab Data Labs: Lab Results 11/29/24 11/29/24 11/29/24 Range/Units 13:38 14:41 15:25 WBC 6.2 (4.0-11.0) 10^3/uL RBC 4.70 (4.70-6.10) 10^6/uL Hgb 15.2 (14.0-18.0) g/dL Hct 45.1 (42.0-54.0) % MCV 96.0 H (80.0-94.0) fL MCH 32.3 (25.9-34.0) pg MCHC 33.7 (29.9-35.2) g/dL RDW 13.3 (11.0-15.0) % Plt Count 143 L (150-450) 10^3/uL MPV 10.2 (9.5-13.5) fL Neut % (Auto) 53.6 (43.0-75.0) % Lymph % (Auto) 34.1 (20.5-60.0) % [place] % (Auto) 9.7 (1.7-12.0) % Eos % (Auto) 2.1 (0.9-7.0) % Baso % (Auto) 0.3 (0.2-2.0) % Neut # (Auto) 3.3 (1.4-6.5) 10^3/uL Lymph # (Auto) 2.1 (1.2-3.8) 10^3/uL [place] # (Auto) 0.6 (0.3-0.8) 10^3/uL Eos # (Auto) 0.1 (0.0-0.7) 10^3/uL Baso # (Auto) 0.0 (0.0-0.1) 10^3/uL Abs Immat Gran (auto) 0.01 (0.00-0.03) 10^3/uL Imm/Tot Granulo (auto) 0.2 (0.0-0.5) % Sodium 142 (136-145) mmol/L Potassium 4.4 (3.5-5.1) mmol/L Chloride 105 (98-107) mmol/L Carbon Dioxide 29.2 (21.0-32.0) mmol/L Anion Gap 12.2 BUN 20.0 H (7.0-18.0) mg/dL Creatinine 1.12 (0.70-1.30) mg/dL Est GFR ( Amer) >60 (>=60 mL/min/1.73m^2) Est GFR (Non-Af Amer) >60 (>=60 mL/min/1.73m^2) BUN/Creatinine Ratio 17.9 Glucose 243 H (74-106) mg/dL Calcium 8.8 (8.5-10.1) mg/dL Total Bilirubin 0.9 (0.2-1.0) mg/dL AST 25 (15-37) U/L ALT 48 (16-63) U/L Alkaline Phosphatase 104 (46-116) U/L Troponin I High Sens 12.4 12.4 (4.0-76.1) pg/mL Total Protein 6.5 (6.4-8.2) g/dL Albumin 3.6 (3.4-5.0) g/dL Globulin 2.9 g/dL Albumin/Globulin Ratio 1.2 Urine Color Lt. yellow (YELLOW) Urine Clarity Clear (CLEAR) Urine pH 7.0 (5.0-9.0) Ur Specific Sasser 1.020 (1.005-1.025) Urine Protein Negative (NEG/TRACE) mg/dL Urine Glucose (UA) >=1000 A (NEGATIVE) mg/dL Urine Ketones Negative (NEGATIVE) mg/dL Urine Occult Blood Negative (NEGATIVE) Urine Nitrite Negative (NEGATIVE) Urine Bilirubin Negative (NEGATIVE) Urine Urobilinogen 0.2 (0.2-1.0) EU/dL Ur Leukocyte Esterase Negative (NEGATIVE) Discharge Plan Discharge Chief Complaint: Recheck/Abnormal Lab/Rx Clinical Impression: Hypertension Patient Disposition: Home, Self-Care Time of Disposition Decision: 17:01 Prescriptions / Home Meds: No Action allopurinol 300 mg tablet 300 mg PO DAILY atorvastatin 20 mg tablet 20 mg PO DAILY carvedilol 25 mg tablet 25 mg PO Q12H clopidogrel 75 mg tablet 75 mg PO DAILY lisinopril 40 mg tablet 40 mg PO DAILY aspirin 81 mg capsule 81 mg PO DAILY cholecalciferol (vitamin D3) [Vitamin D3] 125 mcg (5,000 unit) tablet 125 mcg PO DAILY Print Language: [place]uran Instructions: Hypertension (ED) Referrals: BRAD ORR [Primary Care Provider, Internal Medicine] - 1 week
[2024-11-29] MEDS: LABETALOL HCL 100 MG/20 ML MDV 20 MG IVP (15:19)
[2024-11-29 15:37] LABS: Glucose Urine UA >=1000 mg/dL (NEGATIVE)
[2024-11-29] MEDS: LABETALOL HCL 100 MG/20 ML MDV 40 MG IVP (16:09)
== END 2024-11-29 17:20 | disposition home or self-care (01) ==
PROVIDERS: Physician Assistant; Emergency Provider Emergency Medicine; PCP Internal Medicine
DX: I10 Essential (primary) hypertension (principal); Z79.899 Other long term (current) drug therapy; Z79.82 Long term (current) use of aspirin; E78.5 Hyperlipidemia, unspecified; Z95.5 Presence of coronary angioplasty implant and graft; R73.9 Hyperglycemia, unspecified
CPT/HCPCS: 36415; 71045; 80053; 80307; 81003; 84484; 85025; 93005; 96374; 96375; 96376; 99285; J1290

== ENCOUNTER 2024-12-01 08:51 | Outpatient (OUT) | payer MEDICARE, SELFPAY ==
--- NOTE | 2024-12-01 09:00 | CA_ITS ---
Patient Name: HERVE REGALADO MR#: [id number] : 1940 Exam Date: 12/01/2024 Ordering Doctor: DR BRAD ORR M.D. ECHOCARDIOGRAM REPORT PROCEDURE: CA ECHO DOPPLER COMPLETE INDICATIONS: Edema, chronic diastolic congestive heart failure, hypertension, cardiac stent COMPARISON: None. DESCRIPTION: COMPLETE ECHOCARDIOGRAM Real-time transthoracic echocardiography with 2D, M-mode, spectral and color flow Doppler performed. QUALITY: Technical quality was good. LEFT VENTRICLE: Normal chamber size. Severe concentric left ventricular hypertrophy. Normal left ventricular static function without wall motion abnormalities. Calculated left ventricular ejection fraction is 60%. LV EF: Normal left ventricular ejection fraction, (>55%). DIASTOLIC: Grade I diastolic dysfunction. ATRIAL SEPTUM: Visually appears intact LEFT ATRIUM: Normal chamber size. RIGHT ATRIUM: Normal chamber size. RIGHT VENTRICLE: Normal chamber size. Normal right ventricular systolic function. TRICUSPID VALVE: Normal mobility and thickness. No stenosis with trivial regurgitation. Unable to assess right-sided pressures due to the lack of measurable tricuspid regurgitation. MITRAL VALVE: Normal mobility and thickness. No evidence of mitral valve stenosis. There is no mitral annular calcification. Mild mitral regurgitation. AORTIC VALVE: Normal trileaflet appearance. No visible sclerosis. Normal leaflet mobility. No evidence of aortic valve stenosis. No aortic regurgitation. AORTIC ROOT: Normal diameter and appearance. Ascending aorta is normal in size. PULMONIC VALVE: Normal thickness and mobility. No stenosis. Trivial regurgitation. PERICARDIUM: No evidence of pericardial effusion. IVC: Collapes with inspirations. IVC is dilated (2.2 cm) PLEURA: CONCLUSION: Severe concentric left ventricular hypertrophy Normal left ventricular systolic function without wall motion abnormalities Grade 1 left ventricular diastolic function Normal right ventricle size and systolic function Mild mitral regurgitation Dilated IVC but collapsing with inspiration consistent with RAP 8 mmHg Adult Echocardiography Procedure Report Left Ventricle LVEDD (3.7 - 5.6 cm): 4.67 cm LVESD (2.2 - 4.0 cm): 3.35 cm LVIVS thickness (0.6 - 1.2 cm): 1.77 cm LVPW thickness (0.5 - 1.0 cm): 1.55 cm e': 0.05 m/s E - e': 5.81 LVOT Max Gradient: 1.73 mm[Hg] LVOT Area (cm2): 0.66 m/s Peak Velocity (LVOT): 0.66 m/s Mean Velocity (LVOT): 0.39 m/s LVOT Diameter 2.59 cm Left Ventricular Ejection Fraction: 59.63 % Left Atrium LA Volume Index (2D A2C): 33.76 ml/m2 Left Atrium Systolic Dimension: 4.63 cm Mitral Valve MV E to A Ratio: 0.44 Mitral Valve A-Wave Peak Velocity: 0.67 m/s Mitral Valve E-Wave Peak Velocity: 0.30 m/s Right Ventricle Aorta AO Root Diam: 3.72 cm Ascending Ao Diam: 3.19 cm Aortic Valve AoV Area (Peak Dennys): 3.74 cm2, 3.74 cm2 AoV Area (VTI): 3.32 cm2, 3.32 cm2 Peak Velocity(Antegrade Flow): 0.93 m/s Peak Gradient(Antegrade Flow): 3.43 mm[Hg] Mean Velocity(Antegrade Flow): 0.66 m/s Mean Gradient(Antegrade Flow): 1.94 mm[Hg] Velocity Time Integral: 20.38 cm Tricuspid Valve Pulmonic Valve Peak Velocity: 0.95 m/s Peak Gradient: 3.61 mm[Hg] Right Atrium Right Atrium Systolic Pressure: 57.86 ml, 57.86 ml Dictated by: Emilia Esparza MD on 12/01/2024 at 11:48 Approved by: Emilia Esparza MD on 12/01/2024 at 11:52
== END 2024-12-01 08:52 | disposition home or self-care (01) ==
LOC: CARD 08:51
PROVIDERS: PCP Internal Medicine; Visit Provider Internal Medicine
DX: R60.9 Edema, unspecified (principal); I50.32 Chronic diastolic (congestive) heart failure
CPT/HCPCS: 93306